=== PATIENT | male | born 2000 | race Hispanic/Latino ===

== ENCOUNTER 2023-07-19 19:27 | Emergency (ER) | payer BC, MEDICAID ==
[~2023-07-19] VITALS: Ht 180.3 cm; Wt 117.9 kg
[2023-07-19 22:14] VITALS: BP 152/78; PULSE 80; RESP 18; O2SAT 98
== END 2023-07-19 22:15 | disposition home or self-care (01) ==
LOC: EDH 19:27
DX: S01.511A Laceration without foreign body of lip, initial encounter (principal); X58.XXXA Exposure to other specified factors, initial encounter; Y93.89 Activity, other specified; Y92.89 Other specified places as the place of occurrence of the external cause; Y99.8 Other external cause status
CPT/HCPCS: 99281